=== PATIENT | male | born 1960 | race Caucasian/White ===

== ENCOUNTER 2018-07-10 14:30 | Outpatient (RCR) | payer OTHER, SELFPAY ==
--- NOTE | 2018-06-10 13:18 | OT.OP.EVAL ---
Visit Care Team Role Provider Type Doctor MD Kylee Attending Provider Non-Staff Specialty: Medical Address: Phone: Fax: Email: Occupational Therapy Initial Evaluation OT Outpatient Adult Evaluation Start: 06/06/18 15:58 Freq: Status: Active Protocol: Document 06/06/18 15:59 AMS (Rec: 06/06/18 16:14 AMS [email or web address]) General Information Visit Start Time 08:30 Visit Stop Time 09:15 Total Visit Minutes 45 Visit Number 09/06 Plan of Care Dates 06/06/18-08/29/18 Insurance Information [employer] Prime-Retired Sponsors and Family Members Treatment Setting Outpatient Care Note Type Initial Evaluation Referring Physician ERICK Reason for Referral L Tennis Elbow Identification Confirmed Yes Medical History Health History Form completed and placed in paper chart. Previous Therapy/Therapies No Therapy Pain Assessment When Pain Assessed Pre-treat Pain Present Pain Reported Left Lateral Elbow Intensity 1 Scale Used Numeric (1 - 10) ADLs Basic ADLs WNL IADLs Comments Dependent upon meaningful activity Driving Ability WNL. (+) rides personal motorcycle intermittently. 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 [place]. Meaningful Abilities Symptoms impacting pt's ability to engage in recreational activities without discomfort. Tightness Tightness Yes Summary of Tightness Muscular tightness present. (+ ) tightness w/ tendency towards pronation at rest relative to L UE. (+) c/o tightness w/ elbow extension, wrist and digit extension (at L lateral elbow/radial side of L wrist/and in digits). Palpation Assessment One Palpation Location L lateral elbow Palpation Findings Edema Tenderness Palpation Details reproduction of symptoms at lateral elbow w/ resisted wrist extension Fine Motor Hand Preference Left Goals Treatment Ultrasound treatment. Short Term Goals 1. 5/5 MMT wrist extension. 2. Pt will present with increased ability to actively engage in meaningful activities (recreational activities) with decreased limitations, as evidenced by pt's indication of no difficulty or mild difficulty on the QuickDASH UE Outcome Measure relative to his ability to engage in recreational activities in which he takes some force or impact through the left arm. Longterm Goals 1. Pt will be mod I w/ execution of home exercise program. Assessment/Plan Patient Response Good Rehabilitation Potential Good Impairments Identified Pain Weakness Stiffness Swelling Soft Tissue Mobility Treatment Assessment Pt is a left-hand dominant, 58 year-old male referred to outpt OT by PCP to address L lateral epicondylitis. 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 Pt has attempted to treat symptoms utilizing L lateral epicondylitis band, Advil, and ice compression per recommendations from medical staff. Pt however, continues to complain of discomfort in the L elbow which is impacting his ability to lift/ manipulate heavier objects and engage in meaningful activities (e.g., Baseball). PMH: Medical History form was completed and placed in paper chart. Evaluation findings: L-hand dominant male; reproduction of symptoms w/ resisted wrist extension; decreased L wrist ext strength; muscular tightness w/ resting position -> forearm pronation w/ wrist flexion; c/o tenderness w/ palpation at L lateral epicondyle w/ mild swelling. Pt would likely benefit from OT to address presenting symptoms and decrease their impact on pt's every day life. Home Exercise Program PROM stretch utilizing contralateral hand; wall stretch as alternative. Reviewed with Patient Goals Home Exercise Program Patient Understanding Good Comment 12 weeks Treatment Frequency Once a Week Therapeutic Contents Active Range of Motion Client Education Cognitive Skills Development Functional Activities Home Exercise Program Joint Protection Manual Therapy Education Stretching/Flexibility Activities Therapeutic Activities Therapeutic Exercises Modalities Modalities As Needed As Prescribed Types of Modalities Contrast Bath E-Stim Ice Massage Phonophoresis Ultrasound Patient Instruction Home Exercise Program Plan of Care Questions/Concerns Other Occupational Therapy Assessment OT Outpatient Modality Start: 06/06/18 15:58 Freq: Status: Active Protocol: Document 06/06/18 15:59 AMS (Rec: 06/10/18 13:01 AMS [email or web address]) OT Outpatient Modality Treatment Left Lateral Elbow Name of Modality Ultrasound Duration (Minutes) 15 Body Position Sitting Parameters 20% duty cycle; 2.3 w/cm2 Comments Skin intact pre- and post- treatment. Ultrasound to address swelling. Occupational Therapy Assessment OT Outpatient Muscle Testing Start: 06/10/18 12:59 Freq: Status: Active Protocol: Document 06/06/18 15:59 AMS (Rec: 06/10/18 13:01 AMS [email or web address]) Wrist Strength Wrist Manual Muscle Testing Right Flexion (C7) 5 Normal Extension (C6) 5 Normal Ulnar Deviation 5 Normal Radial Deviation 5 Normal Left Flexion (C7) 5 Normal Extension (C6) 4 Good Ulnar Deviation 5 Normal Radial Deviation 5 Normal
--- NOTE | 2018-06-19 14:19 | OT.OP.TRT ---
Visit Care Team Role Provider Type Doctor MD Kylee Attending Provider Non-Staff Specialty: Medical Address: Phone: Fax: Email: Occupational Therapy Treatment Note OT Outpatient Treatment Note - Adult Start: 06/06/18 15:58 Freq: Status: Active Protocol: Document 06/10/18 14:10 AMS (Rec: 06/19/18 14:19 AMS [email or web address]) OT Outpatient Adult Treatment Note Session Time Visit Start Time 09:30 Visit Stop Time 10:15 Total Visit Minutes 45 Visit Information Visit Number 10/07 Plan of Care Dates 06/06/18-08/29/18 Insurance Information [employer] Prime-Retired Sponsors and Family Members Setting Treatment Setting Outpatient Care Visit Type Note Type Treatment Note General Information General Information Pt is a left-hand dominant, 58 year-old male referred to outpt OT by PCP to address L lateral epicondylitis. 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 Pt has attempted to treat symptoms utilizing L lateral epicondylitis band, Advil, and ice compression per recommendations from medical staff. Pt however, continues to complain of discomfort in the L elbow which is impacting his ability to lift/ manipulate heavier objects and engage in meaningful activities (e.g., Baseball). - Subjective Identification Type Name Identification Reconciled With Medical Record Observations I have been using this band per Patrice. I don't have any weights but I can get them. I have been moving these large landscape stones to make a fire pit. I think they are about 50-pounds. Chief Complaint(s) Loss of Motion/Stiffness Restricts Patient/Caregiver Compliance with Home Fair Exercise Program - Objective Objective Measurements (+) intermittent wearing of lateral band. Short Term Goals 1. 5/5 MMT wrist extension. 2. Pt will present with increased ability to actively engage in meaningful activities (recreational activities) with decreased limitations, as evidenced by pt's indication of no difficulty or mild difficulty on the QuickDASH UE Outcome Measure relative to his ability to engage in recreational activities in which he takes some force or impact through the left arm. Longterm Goals 1. Pt will be mod I w/ execution of home exercise program. - Treatment 2 Descriptor Ultrasound. Skin intact pre- and post-treatment. L Lateral epicondyle 20% duty cycle, 2.0 w/cm2. 1 Descriptor HEP/Education PROM stretches. Use of contrast baths (similar set-up ). Strengthening of distal UE. Pt denied questions and/or need for pictures/written instructions. Manual Therapy Manual Therapy Addressed stiffness of distal L UE; lengthening into forearm supination and wrist extension. - Assessment Patient Response to Treatment Fair Rehab Potential Good Impairments Identified Flexibility Functional Activities Pain Weakness Range of Motion Recreational Activities Meaningful Activities Stiffness Swelling Soft Tissue Mobility Motor Planning Assessment of Improvement Continued presentation of stiffness w/ shortening towards forearm pronation and wrist flexion. Continued c/o tenderness at lateral epicondyle. Home Exercise Program Please refer to treatment section of note for specific details. - Plan Therapy Recommendations Continue with Current Program Advance per Rehabilitation Protocol
--- NOTE | 2018-07-07 14:35 | OT.OP.TRT ---
Visit Care Team Role Provider Type Doctor MD Kylee Attending Provider Non-Staff Specialty: Medical Address: Phone: Fax: Email: Occupational Therapy Treatment Note OT Outpatient Treatment Note - Adult Start: 06/06/18 15:58 Freq: Status: Active Protocol: Document 07/03/18 15:30 AMS (Rec: 07/07/18 14:35 AMS [email or web address]) OT Outpatient Adult Treatment Note Session Time Visit Start Time 09:30 Visit Stop Time 10:15 Total Visit Minutes 45 Visit Information Visit Number 11/04 Plan of Care Dates 06/06/18-08/29/18 Insurance Information [employer] Prime-Retired Sponsors and Family Members Setting Treatment Setting Outpatient Care Visit Type Note Type Treatment Note General Information General Information Pt is a left-hand dominant, 58 year-old male referred to outpt OT by PCP to address L lateral epicondylitis. 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 Pt has attempted to treat symptoms utilizing L lateral epicondylitis band, Advil, and ice compression per recommendations from medical staff. Pt however, continues to complain of discomfort in the L elbow which is impacting his ability to lift/ manipulate heavier objects and engage in meaningful activities (e.g., Baseball). - Subjective Identification Type Name Identification Reconciled With Medical Record Observations I have doing this exercise with a weight baseball per Patrice in re: resisted wrist flexion/extension. Chief Complaint(s) Loss of Motion/Stiffness Restricts Patient/Caregiver Compliance with Home Fair Exercise Program - Objective Objective Measurements (+) intermittent wearing of lateral band. (+) compliance w / stretches and strengthening w/ use of home weights - dumbbells, weighted baseballs. Short Term Goals 1. 5/5 MMT wrist extension. 2. Pt will present with increased ability to actively engage in meaningful activities (recreational activities) with decreased limitations, as evidenced by pt's indication of no difficulty or mild difficulty on the QuickDASH UE Outcome Measure relative to his ability to engage in recreational activities in which he takes some force or impact through the left arm. Middle School Principal Goals 1. Pt will be mod I w/ execution of home exercise program. - Treatment 2 Descriptor Ultrasound. Skin intact pre- and post-treatment. L Lateral epicondyle 20% duty cycle, 2.0 w/cm2. Therapeutic laser treatment. Chronic prison tendon/ ligament/muscle stiffness lateral epicondyle focus. Patient reported decreased tenderness following treatment relative to palpation at lateral epicondyle. 1 Descriptor HEP/Education Recommended strengthening of the wrist w/ movement of elbow in preparation for throwing motion w/ use of weighted baseball of heavier spherial ball 4.4#. Recommended holding in ending position for stretch. Patient denied questions. Manual Therapy Manual Therapy Addressed stiffness of distal L UE; lengthening into forearm supination and wrist extension. - Assessment Patient Response to Treatment Fair Rehab Potential Good Impairments Identified Flexibility Functional Activities Pain Weakness Range of Motion Recreational Activities Meaningful Activities Stiffness Swelling Soft Tissue Mobility Motor Planning Assessment of Improvement Decreased stiffness of volar surface of forearm noted w/ manual massage. Decreased tenderness in response to palpation of lateral epicondyle L following US and laser treatments. Improving forearm supination and decreasing verbal c/o discomforts. This suggests improvements are being made w/ outpt OT. Patient however, continues to experience some discomfort w/ throwing motion and completing heavier lifting activities. Thus, continued treatment recommended. Home Exercise Program Please refer to treatment section of note for specific details. - Plan Therapy Recommendations Continue with Current Program Advance per Rehabilitation Protocol
--- NOTE | 2018-07-11 13:15 | OT.OP.DC ---
Visit Care Team Role Provider Type Elliott Diaz MD Attending Provider Non-Staff Primary Care Provider Address: [address] [place] [address], [place], [address] Phone: Email: OT Outpatient OT Outpatient Adult Evaluation Start: 06/06/18 15:58 Freq: Status: Active Protocol: Document 06/06/18 15:59 AMS (Rec: 06/06/18 16:14 AMS [email or web address]) General Information Session Time Visit Start Time 08:30 Visit Stop Time 09:15 Total Visit Minutes 45 Visit Information Visit Number 09/06 Plan of Care Dates 06/06/18-08/29/18 Insurance Information Prime-Retired Sponsors and Family Members Setting Treatment Setting Outpatient Care Visit Type Note Type Initial Evaluation Referral Referring Physician ERICK Reason for Referral L Tennis Elbow Identification Identification Confirmed Yes Medical Information Medical History Health History Form completed and placed in paper chart. Previous Therapy Previous Therapy/Therapies No Therapy Pain Assessment Pain When Pain Assessed Pre-treat Pain Present Pain Present Pain Reported Location Left Lateral Elbow Intensity 1 Scale Used Numeric (1 - 10) ADLs Overall Ability Basic ADLs WNL IADLs Overall Function Comments Dependent upon meaningful activity Driving Driving Ability WNL. (+) rides personal motorcycle intermittently. 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 [place]. Meaningful Activities Meaningful Abilities Symptoms impacting pt's ability to engage in recreational activities without discomfort. Tightness Tightness Tightness Yes Summary of Tightness Muscular tightness present. (+ ) tightness w/ tendency towards pronation at rest relative to L UE. (+) c/o tightness w/ elbow extension, wrist and digit extension (at L lateral elbow/radial side of L wrist/and in digits). Palpation Assessment Location One Palpation Location L lateral elbow Palpation Findings Edema Tenderness Palpation Details reproduction of symptoms at lateral elbow w/ resisted wrist extension Fine Motor Handedness Hand Preference Left Goals Treatment Treatment Ultrasound treatment. Short Term Goals Short Term Goals 1. 5/5 MMT wrist extension. 2. Pt will present with increased ability to actively engage in meaningful activities (recreational activities) with decreased limitations, as evidenced by pt's indication of no difficulty or mild difficulty on the QuickDASH UE Outcome Measure relative to his ability to engage in recreational activities in which he takes some force or impact through the left arm. Penitentiary Goals Buffet Waiter/Waitress Goals 1. Pt will be mod I w/ execution of home exercise program. Assessment/Plan Assessment Patient Response Good Rehabilitation Potential Good Impairments Identified Pain Weakness Stiffness Swelling Soft Tissue Mobility Treatment Assessment Pt is a left-hand dominant, 58 year-old male referred to outpt OT by PCP to address L lateral epicondylitis. 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 Pt has attempted to treat symptoms utilizing L lateral epicondylitis band, Advil, and ice compression per recommendations from medical staff. Pt however, continues to complain of discomfort in the L elbow which is impacting his ability to lift/ manipulate heavier objects and engage in meaningful activities (e.g., Baseball). PMH: Medical History form was completed and placed in paper chart. Evaluation findings: L-hand dominant male; reproduction of symptoms w/ resisted wrist extension; decreased L wrist ext strength; muscular tightness w/ resting position -> forearm pronation w/ wrist flexion; c/o tenderness w/ palpation at L lateral epicondyle w/ mild swelling. Pt would likely benefit from OT to address presenting symptoms and decrease their impact on pt's every day life. Home Exercise Program PROM stretch utilizing contralateral hand; wall stretch as alternative. Reviewed with Patient Goals Home Exercise Program Patient Understanding Good Plan Comment 12 weeks Treatment Frequency Once a Week Therapeutic Contents Active Range of Motion Client Education Cognitive Skills Development Functional Activities Home Exercise Program Joint Protection Manual Therapy Education Stretching/Flexibility Activities Therapeutic Activities Therapeutic Exercises Modalities Modalities As Needed As Prescribed Types of Modalities Contrast Bath E-Stim Ice Massage Phonophoresis Ultrasound Patient Instruction Home Exercise Program Plan of Care Questions/Concerns Other Sensory Assessment Sensory Profile2 Functional Wrist/Hand Scan Hand Side OT Outpatient Muscle Testing Start: 06/10/18 12:59 Freq: Status: Active Protocol: Document 07/10/18 15:30 AMS (Rec: 07/11/18 13:15 AMS [email or web address]) Wrist Strength Wrist Manual Muscle Testing Right Flexion (C7) 5 Normal Extension (C6) 5 Normal Ulnar Deviation 5 Normal Radial Deviation 5 Normal Left Flexion (C7) 5 Normal Extension (C6) 4+ Good+ Ulnar Deviation 5 Normal Radial Deviation 5 Normal OT Outpatient Treatment Note - Adult Start: 06/06/18 15:58 Freq: Status: Active Protocol: Document 07/10/18 15:30 AMS (Rec: 07/11/18 13:15 AMS [email or web address]) OT Outpatient Adult Treatment Note Session Time Visit Start Time 14:30 Visit Stop Time 15:15 Total Visit Minutes 45 Visit Information Visit Number 12/05 Plan of Care Dates 06/06/18-08/29/18 Insurance Information [employer]-Retired Sponsors and Family Members Setting Treatment Setting Outpatient Care Visit Type Note Type Treatment Note General Information General Information Pt is a left-hand dominant, 58 year-old male referred to outpt OT by PCP to address L lateral epicondylitis. 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 Pt has attempted to treat symptoms utilizing L lateral epicondylitis band, Advil, and ice compression per recommendations from medical staff. Pt however, continues to complain of discomfort in the L elbow which is impacting his ability to lift/ manipulate heavier objects and engage in meaningful activities (e.g., Baseball). - Subjective Identification Type Name Identification Reconciled With Medical Record Observations I think it is better per Patrice. I think I have a handle on the exercises. Chief Complaint(s) Loss of Motion/Stiffness Restricts Patient/Caregiver Compliance with Home Good Exercise Program - Objective Objective Measurements (+) intermittent wearing of lateral band. 0/10 on Pain Assessment Grid relative to left elbow. QuickDASH UE Outcome Measure score = 6.81; Sports/Performing Arts Module score = 18.75 Short Term Goals ALL GOALS DISCHARGED d/t DISCHARGE TO [facility]: 1. 5/5 MMT wrist extension. = 4+/5 MMT *GOALS MET Pt will present with increased ability to actively engage in meaningful activities ( recreational activities) with decreased limitations, as evidenced by pt's indication of no difficulty or mild difficulty on the QuickDASH UE Outcome Measure relative to his ability to engage in recreational activities in which he takes some force or impact through the left arm. * MET 07/10/18 = mild difficulty Penitentiary Goals *GOALS MET Pt will be mod I w/ execution of home exercise program. *MET 07/10/18 - Treatment 2 Descriptor Ultrasound. Skin intact pre- and post-treatment. L Lateral epicondyle 20% duty cycle, 2.0 w/cm2. Therapeutic laser treatment. Chronic halfway tendon/ ligament/muscle stiffness lateral epicondyle focus. Patient reported decreased tenderness following treatment relative to palpation at lateral epicondyle. 1 Descriptor HEP. Reviewed current HEP and patient denied any questions. Manual Therapy Manual Therapy Addressed stiffness of distal L UE; lengthening into forearm supination and wrist extension. Lateral epicondyle manual massage. - Assessment Patient Response to Treatment Good Rehab Potential Good Impairments Identified Functional Activities Pain Weakness Range of Motion Recreational Activities Meaningful Activities Stiffness Swelling Soft Tissue Mobility Motor Planning Assessment of Improvement Patient has reported decline in pain of left elbow since time of initial evaluation; patient also is reporting improving soft tissue mobility and ability to move into forearm supination w/ wrist ulnar deviation without use of compensatory movements. Patient is independent with execution of current HEP. Based on progress and current level of independence w/ HEP it is recommended that patient be discharged from outpt OT. Recommend follow-up as needed/ as deemed appropriate by patient's PCP. Home Exercise Program Please refer to treatment section of note for specific details. Reviewed with Patient/Caregiver Goals Progress Being Made Home Exercise Program Patient/Caregiver Understanding Good - Plan Therapy Recommendations Discharge from Occupational Therapy Occupational Therapy Assessment OT Outpatient Muscle Testing Start: 06/10/18 12:59 Freq: Status: Active Protocol: Document 07/10/18 15:30 AMS (Rec: 07/11/18 13:15 AMS [email or web address]) Wrist Strength Wrist Manual Muscle Testing Right Flexion (C7) 5 Normal Extension (C6) 5 Normal Ulnar Deviation 5 Normal Radial Deviation 5 Normal Left Flexion (C7) 5 Normal Extension (C6) 4+ Good+ Ulnar Deviation 5 Normal Radial Deviation 5 Normal
== END 2019-01-01 17:50 | disposition home or self-care (01) ==
LOC: OT 14:30
DX: M77.8 Other enthesopathies, not elsewhere classified (principal)
CPT/HCPCS: 97035; 97110; 97140; 97165

== ENCOUNTER → 2021-08-02 10:29 | Outpatient (CLI) | payer OTHER, SELFPAY ==
[2021-08-02 13:56] LABS: COVID19 -Nasal RAPID Negative (Negative)
== END ==
PROVIDERS: Visit Provider Physician Assistant
DX: Z20.822 Contact with and (suspected) exposure to COVID-19 (principal)
CPT/HCPCS: 87635

== ENCOUNTER → 2021-08-04 13:27 | Outpatient (CLI) | payer OTHER, SELFPAY ==
--- NOTE | 2021-08-04 | DI.NM.S_ITS ---
PROCEDURE: NM EXERCISE TREADMILL NON NUC COMPARISON: None. INDICATIONS: Cardiac murmur, PALPITATIONS FINDINGS: The patient exercised for 7 minutes and 11 seconds, reaching 93% of maximum predicted heart rate. Appropriate BP response to exercise. No angina and no ECG changes to suggest ischemia. Mildly reduced exercise capacity (8 METs, THERESA +16%). IMPRESSION: Low risk, normal treadmill ECG only stress test. Mildly reduced exercise capacity (8 METs, THERESA +16%) with no angina and no ECG changes to suggest ischemia. Dictated by: Chano Huang MD on 08/04/2021 at 17:08 Approved by: Chano Huang MD on 08/04/2021 at 17:10
--- NOTE | 2021-08-04 | DI.ECHO.S_ITS ---
[place] [facility]---------+ [facility] +---------+ : : [address] : [address] : : : : [id number] : : : : Phone: [phone] +---------+ Echocardiogram Report + + :Name: TRAMAINE DICKINSON Study Date: 08/04/2021 Height: 73 in : :[facility] ReadingLocation: Weight: 243 lb : : Gender: Male BSA: 2.3 m2 : :: 1960 Age: 61 yrs BP: 129/82 mmHg: :Reason For Study: Murmur, palpitations : : Performed By: Alvin Arroyo : :Referring: SONIA HUANG : + + Interpretation Summary 1) Normal left ventricular size, thickness, and systolic function (EF 55-60%). 2) There are no obvious focal wall motion abnormalities noted but poor endocardial definition reduces the sensitivity for the detection of such. 3) Normal right ventricular size and function. 4) There is moderate aortic stenosis (valve area 1.0cm2, mean gradient 30mmHg severity ratio 0.32). 5) There is mild aortic regurgitation. 6) No prior Echo available for comparison. Procedure: A two-dimensional transthoracic echocardiogram with color flow and Doppler was performed. The study quality was technically adequate. The subcostal views were difficult to obtain and are suboptimal in quality. There is no prior echocardiogram noted for this patient. The patient was in normal sinus rhythm during the exam. The patient had occasional PVCs during the exam. Left Ventricle: The left ventricle is normal in size and wall thickness. The ejection fraction is estimated to be 55-60%. Left ventricular systolic function is normal. There are no obvious focal wall motion abnormalities noted but poor endocardial definition reduces the sensitivity for the detection of such. Right Ventricle: The right ventricle is normal in size and function. Atria: The left atrial size is normal. Borderline right atrial enlargement. There is no Doppler evidence for an interatrial shunt. The thickening of interatrial septum suggests lipomatous hypertrophy. Mitral Valve: The mitral valve is normal. There is trace mitral regurgitation. Aortic Valve: The aortic valve is heavily calcified. The aortic valve is trileaflet. There is moderately reduced leaflet mobility. There is moderate aortic stenosis. The peak aortic velocity is 3.5 m/sec. The aortic valve mean gradient is 30 mmHg. There is mild aortic regurgitation. Tricuspid Valve: The tricuspid valve is normal. There is trace tricuspid regurgitation. The right ventricular systolic pressure is estimated to be at least 22 mmHg based on an estimated right atrial pressure of 3 mm Hg. Pulmonic Valve: The pulmonic valve leaflets are thin and pliable; valve motion is normal. There is a trace or physiologic amount of pulmonic regurgitation. Great Vessels: The aortic root is normal size. The ascending aorta is normal in size. The aortic arch is at the upper limits of normal in size. The IVC is of normal diameter and collapses greater than 50% with a sniff. This suggests a low right atrial pressure of 3 mm Hg. Pericardium/ Pleura There is no pericardial effusion. There is no pleural effusion. MMode/2D Measurements & Calculations LVIDd: 4.9 cm LVOT diam: 2.1 cm LVIDs: 2.8 cm Ao root diam: 3.2 cm FS: 41.7 % asc Aorta Diam: 2.9 cm IVSd: 0.90 cm Ao Arch Diam (Prox Trans): 3.3 cm LVPWd: 0.89 cm LV lemus. diameter/BSA (cm/m^2): 2.1 LV sys. diameter/BSA (cm/m^2): 1.2 LA A2 area: 22.8 cm2 RA long axis: 5.2 cm LA A4 area: 19.6 cm2 RA area: 16.8 cm2 LA length (vol): 6.2 cm RA vol: 46.3 ml LA vol: 61.3 ml RA : 19.8 ml/m2 LA vol index: 26.3 ml/m2 IVC diam: 1.7 cm TAPSE: 2.2 cm Doppler Measurements & Calculations Ao V2 max: 347.6 cm/sec LVOT Max Umair: 105.9 cm/sec Ao V2 mean: 264.7 cm/sec LV V1 max P.5 mmHg Ao max P.3 mmHg LV V1 VTI: 25.2 cm Ao mean P.3 mmHg MARCELINO(I,D): 1.0 cm2 Ao V2 VTI: 80.1 cm MARCELINO(V,D): 1.0 cm2 sev ratio: 0.32 MARCELINO indexed to BSA (cm^2/m^2): 0.45 MV E max umair: 86.7 cm/sec TR max umair: 218.1 cm/sec MV A max umair: 89.7 cm/sec TR max P.0 mmHg MV E/A: 0.97 PA V2 max: 68.0 cm/sec Med Peak E' Umair: 8.5 cm/sec PA V2 mean: 53.2 cm/sec E/E' med: 10.2 PA mean P.2 mmHg Lat Peak E' Umair: 10.2 cm/sec PA pr(Accel): 30.2 mmHg E/E' lat: 8.5 E/e' average: 9.4 MV dec time: 0.21 sec SV(LVOT): 83.7 ml Reading Physician:02:51 PM
== END ==
PROVIDERS: Referring Provider Internal Medicine Cardiovascular Disease; Visit Provider Internal Medicine Cardiovascular Disease
DX: I35.2 Nonrheumatic aortic (valve) stenosis with insufficiency (principal); R01.1 Cardiac murmur, unspecified; R00.2 Palpitations
CPT/HCPCS: 93017; 93306

== ENCOUNTER → 2023-06-07 09:57 | Outpatient (CLI) | payer OTHER, SELFPAY ==
--- NOTE | 2023-06-07 | DI.RAD.S_ITS ---
PROCEDURE: XR CHEST 2V INDICATIONS: Nonrheumatic aortic (valve) stenosis TECHNIQUE: 2 views of the chest were acquired. COMPARISON: None. FINDINGS: Surgical changes and devices: Prosthetic valve and sternotomy. Lungs and pleura: Streaky left basilar airspace opacities, probably atelectasis. Mediastinum: Mediastinal contours are normal. Heart size is normal. Bones and chest wall: No suspicious bony abnormalities. Soft tissues appear unremarkable. IMPRESSION: Streaky left basilar airspace opacities, likely atelectasis. Dictated by: Bala Bryan M.D. on 06/07/2023 at 11:45 Approved by: Bala Bryan M.D. on 06/07/2023 at 11:52
== END ==
PROVIDERS: Referring Provider Internal Medicine Cardiovascular Disease; Visit Provider Internal Medicine Cardiovascular Disease
DX: I35.0 Nonrheumatic aortic (valve) stenosis (principal); I49.1 Atrial premature depolarization
CPT/HCPCS: 71046

== ENCOUNTER → 2025-07-12 12:39 | Outpatient (CLI) | payer OTHER, SELFPAY ==
--- NOTE | 2025-07-12 12:46 | DI.US.S_ITS ---
PROCEDURE: US VENOUS INSUFFICIENCY BILAT INDICATIONS: Edema TECHNIQUE: Real time scanning was performed of the lower extremity venous system, with imaging documentation, as well as Color and pulse Doppler interrogation. COMPARISON: None. FINDINGS: RIGHT LOWER EXTREMITY: The deep veins are normally compressible, and free of intraluminal thrombus. Color and pulse Doppler demonstrate normal intravascular flow. There is normal augmentation with distal compression maneuver. No reflux. Greater saphenous vein (GSV): Normally 4 mm or less in diameter, with any reflux less than 0.5 seconds. Saphenofemoral junction (SFJ): 5 mm. No reflux. Proximal GSV: 5 mm and reflux, duration 0.8 seconds. Mid GSV: 3 mm. No reflux. Distal GSV: 4 mm and reflux, duration 0.8 seconds. Calf GSV: 3 mm, and no reflux . Anterior accessory GSV (AAGSV): Not identified. Small saphenous vein (SSV): No reflux. LEFT LOWER EXTREMITY: The deep veins are normally compressible, and free of intraluminal thrombus. Color and pulse Doppler demonstrate normal intravascular flow. There is normal augmentation with distal compression maneuver. Greater saphenous vein (GSV): Normally 4 mm or less in diameter, with any reflux less than 0.5 seconds. Saphenofemoral junction (SFJ): 5 mm. No reflux. Proximal GSV: 4 mm. No reflux. Mid GSV: 11 mm reflux, duration 6.3 seconds Distal GSV: 7 mm and reflux, duration 6.8 seconds Calf GSV: 7 mm and reflux, duration 3.1 seconds. Anterior accessory GSV (AAGSV): Not identified. Small saphenous vein (SSV): No reflux. IMPRESSION: Reflux involving the greater saphenous vein bilaterally. Dictated by: Ranjit Parikh [facility] Interpreted: Otoniel Raya MD on 07/12/2025 at 15:19 Transcribed by: ALBERTINA on 07/12/2025 at 15:22 Approved by: Otoniel Raya M.D. on 07/12/2025 at 17:18
== END ==
LOC: US 12:42
PROVIDERS: Visit Provider Family Medicine
DX: R60.9 Edema, unspecified (principal); I86.8 Varicose veins of other specified sites
CPT/HCPCS: 93970